=== PATIENT | female | born 1955 | race African-American/Black ===

== ENCOUNTER → 2016-10-20 | Outpatient (CLI) | payer OTHER ==
[~2016-10-20] MED LIST: ALTACE PO; AMOXICILLIN125 MG PO; ATENOLOL-CHLOR1 EACH PO; ATENOLOL50 MG PO; BAYER ASPIRIN325 M1; BAYER ASPIRIN325 M1 PO; BYSTOLIC5 MG PO; CARDIZEM PO; HYDROCHLOROTH12.5 M1 PO; LEVAQUIN250 MG PO; NEXIUM PO; NORVASC PO; PRILOSEC PO; WATER PILL; ZITHROMAX PO; ZOFRANODT PO
[2016-10-20 14:45] LABS: CALCIUM SERUM 8.8 mg/dL (8.4-10.2); GLOM FILT RATE Estimated 70.5 mL/min (>60); POTASSIUM 3.8 mmol/L (3.5-5.1)
== END | disposition home or self-care (01) ==
LOC: CLAB 13:06
PROVIDERS: Internal Medicine Interventional Cardiology
DX: E66.9 Obesity, unspecified (principal); I10 Essential (primary) hypertension
CPT/HCPCS: 36415; 80048; 80061

== ENCOUNTER → 2016-11-13 | Outpatient (CLI) | payer OTHER | END | disposition home or self-care (01) | LOC: CECH 12:17 | DX: R06.02 Shortness of breath (principal); I11.9 Hypertensive heart disease without heart failure | CPT/HCPCS: 93306 ==

== ENCOUNTER → 2016-11-24 | Outpatient (CLI) | payer OTHER ==
--- NOTE | ~2016-11-24 | ST ---
Unit #: [id number] #: [id number] Patient: CHAU HALE [id number] [address] [address] [id number] O MR#: [id number] NAME: CHAU HALE. : 1955 SEX: F STUDY DATE/TIME: 11/24/2016 UNIT: [facility] ROOM: STUDY DESCRIPTION: Attending Physician: Verenice Gtz M.D. Referring Physician: Verenice Gtz M.D. Primary Care Physician: Anthony Case M.D. CARDIOLOGY REPORT EXAM ECG portion of Lexiscan stress test. ORDERING PHYSICIAN Verenice Gtz M.D. SUMMARY The patient underwent Lexiscan protocol. The patient's resting heart rate was 61 beats per minute which increased to 102 beats per minute, representing 64% of the maximum age predicted heart rate. Patient's resting blood pressure was 150/80 mmHg which decreased to 136/86 mmHg with Lexiscan infusion. The patient's resting ECG shows normal sinus rhythm with inferolateral nonspecific T-wave changes with Lexiscan infusion. The patient continues to remain in normal sinus rhythm with continued nonspecific ST segment and T-wave changes in inferolateral territory not meeting ischemic threshold. There is no ventricular or supraventricular ectopy noted. There are no pauses noted. CONCLUSION 1. Negative ECG portion of Lexiscan for ischemia. 2. Perfusion imaging dictated separately. EXAM Nuclear portion. SUMMARY Patient underwent nuclear stress test. Received a resting dose of 9.82 mCi and a stress dose of 30.1 mCi. On perfusion imaging comparing rest and stress images, there was decreased tracer uptake seen at rest which improves in stress. There is no reversible perfusion defects noted on stress imaging. On gated imaging, patient had normal wall motion with preserved ejection fraction. Patient's LV EF is 59%. CONCLUSION 1. No obvious ischemia. 2. Preserved ejection fraction. 3. ECG portion dictated above. Dictated by... Verenice Gtz M.D. Unit #: [id number] #: [id number] Patient: CHAU HALE NE/lex TD: 11/24/2016 14:26 JOB #: [id number] CARDIOLOGY REPORT Page 1 of 1 X VERENICE GTZ MD CARDIOLOGY REPORT
== END | disposition home or self-care (01) ==
LOC: CNUC 07:18
DX: E78.5 Hyperlipidemia, unspecified (principal)
CPT/HCPCS: 78452; 93017; A9500; J2785

== ENCOUNTER → 2017-01-27 | Outpatient (CLI) | payer OTHER ==
--- NOTE | ~2017-01-27 | US85 ---
[facility] A Service of [facility] RADIOLOGY TEXT RESULTS PATIENT: CHAU HALE LOCATION: CN[facility] : 55 UNIT #: [id number] AGE: [address]: Anthony Case MD SEX: F ORDER DR: [id number] [facility]. [place], [place] [address] [id number] O MR#: [id number] Acc #: [id number] NAME: CHAU HALE : 1955 SEX: F STUDY DATE/TIME: 01/27/2017 14:36 UNIT: [facility] ROOM: STUDY DESCRIPTION: [facility] or [facility] Attending Physician: Anthony Case M.D. Referring Physician: Anthony Case M.D. Ordering Physician: Anthony Case M.D. Primary Care Physician: Anthony Case M.D. MEDICAL IMAGING REPORT This report is preliminary unless electronic signature is present EXAM Left lower extremity venous Doppler INDICATIONS Left anterior calf pain radiating to the knee for 2 weeks. COMPARISON None available. TECHNIQUE Venous ultrasound examination of the left lower extremity was performed using grayscale, spectral Doppler and color flow Doppler imaging. FINDINGS The examination is negative. There is no evidence of left lower extremity deep venous thrombus from the groin to the lower calf. Visualized greater saphenous vein is also patent. IMPRESSION Negative examination. No evidence of left lower extremity deep venous thrombosis. Dictated by... Juan Arellano M.D. THIS IS AN ELECTRONICALLY VERIFIED REPORT Juan Arellano M.D. at 01/29/2017 9:47 AM RPShai/pawan TD: 01/28/2017 04:45 JOB #: [id number] [facility] A Service of [facility] RADIOLOGY TEXT RESULTS PATIENT: CHAU HALE LOCATION: CNIV : 55 UNIT #: [id number] AGE: [address]: Anthony Case MD SEX: F ORDER DR: MEDICAL IMAGING REPORT Page 1 of 1 COPY
== END | disposition home or self-care (01) ==
LOC: CNIV 14:05
DX: M79.662 Pain in left lower leg (principal)
CPT/HCPCS: 93971